=== PATIENT | female | born 1970 | race Caucasian/White ===

== ENCOUNTER 2021-10-13 10:17 | Emergency (ER) | payer OTHER, SELFPAY ==
[2021-10-13] VITALS (7 sets, daily range): BP systolic 116–162; BP diastolic 63–90; PULSE 55–122; RESP 13–18; O2SAT 97–98
--- NOTE | ~2021-10-13 | XR_ITS ---
EXAMINATION: XR chest 2V EXAM DATE: 10/13/2021 10:43 INDICATION: Generalized chest pain, transient alteration of awareness. TECHNIQUE: Frontal and lateral projections of the chest obtained and reviewed. There is no prior silvestre dy for comparison. FINDINGS: Cervical fusion hardware. The lungs are clear. There are no pleural effusions. The cardi omediastinal silhouette is within normal limits. There is no pneumothorax suspected. The bones and soft tissues are unremarkable. IMPRESSION: No acute cardiopulmonary findings. Reviewed, dictated and finalized at location B. [employer]ING [employer]ING OFFICER
--- NOTE | 2021-10-13 10:23 | ECG_ITS ---
Measurements Intervals [place] Rate: 93 P: 71 IN: 153 QRS: 61 QRSD: 82 T: 65 QT: 344 QTc: 430 Interpretive Statements SINUS RHYTHM BASELINE ARTIFACT- I, II, III, AVR, AVL, AVF, V1-V6 NORMAL ECG Electronically Signed On 10-13-2021 10:51:42 [employer]NEY LAW[employer] by Mike Gonzalez D.O.
[2021-10-13 11:03] LABS: Basophils Absolute Auto 0.1 K/mm3 (0.0-0.1); Basophils Percent Auto 0.7 % (0.2-1.2); Eosinophils Absolute Auto 0.1 K/mm3 (0-0.3); Eosinophils Percent Auto 0.8 % (0-4.4); Hematocrit 39.1 % (37.0-47.0); Hemoglobin 12.7 g/dL (12.0-15.0); Immature Granulocyte Absolute 0.07 K/mm3 (0.00-0.031); Immature Granulocyte Percent A 0.5 % (0-0.5); Lymphocytes Absolute Auto 2.96 K/mm3 (0.9-3.2); Lymphocytes Percent Auto 23.1 % (18.3-44.2); Mean Corpuscular HGB Conc 32.5 g/dl (32-36); Mean Corpuscular Hemoglobin 26.8 pg (26-34); Mean Corpuscular Volume 82.5 fl (80-100); Mean Platelet Volume 9.1 fl (7.4-10.4); Monocytes Percent Auto 7.6 % (2.6-8.5); Neutrophils Absolute Auto 8.6 K/mm3 (1.3-6.7); Neutrophils Percent Auto 67.3 % (45.5-73.1); Platelet Count Result 399 k/mm3 (150-375); Red Blood Count 4.74 M/mm3 (4.2-5.4); Red Cell Distribution Width 14.8 % (11.5-14.5); White Blood Count 12.8 K/mm3 (4.5-10.0)
[2021-10-13 11:13] LABS: Prothrombin Time 12.7 Seconds (11.1-14.7)
[2021-10-13 11:14] LABS: Partial Thromboplastin Time 20.7 SECONDS (22.3-36.8)
[2021-10-13 11:16] LABS: Alanine Aminotransferase 23 U/L (4-35); Albumin Level 4.2 g/dL (3.5-5.1); Alkaline Phosphatase 58 U/L (38-126); Anion Gap 11 mmol/L (8-16); Aspartate Amino Transferase 35 U/L (14-36); Bilirubin,Total 0.5 mg/dL (0.2-1.3); Blood Urea Nitrogen 16 mg/dL (7-17); Calcium 9.7 mg/dL (8.4-10.2); Carbon Dioxide 24 mmol/L (22-30); Chloride 106 mmol/L (98-107); Estimated Glomerular Filt Rate > 60; Glucose 126 mg/dL (65-110); Lipase 144 U/L (23-300); Sodium 141 mmol/L (137-145)
--- NOTE | 2021-10-13 11:17 | ED.GENADULT ---
HPI - General Adult General Chief complaint: Chest Pain Stated complaint: PAIN ALL OVER Time Seen by Provider: 10/13/21 10:32 History of Present Illness HPI narrative: Patient 51-year-old female presents the emergency department with chief complaint of chest pain. Per EMS they were called for the patient having discomfort in her chest. Currently the patient has no real complaints the patient has history of being admitted to a nursing facility after having a fentanyl overdose. History is limited due to altered mental status Related Data Allergies Allergy/AdvReac Type Severity Reaction Status Date / Time ketorolac Allergy Severe N/V,BLOTCHEY Unverified 02/11/09 11:39 RASH fentanyl AdvReac Unknown Verified 10/13/21 11:29 Review of Systems Review of Systems: A 10 system review of systems was completed on the patient and is negative except for what is stated in the HPI. Nursing and ancillary documentation was reviewed. Exam Narrative: GENERAL: Well-appearing, well-nourished, and in no acute distress. HEAD: Normocephalic, atraumatic. EYES: PERRLA and EOMI. ENT: Nares clear, no rhinorrhea or epistaxis. Mucous membranes moist. NECK: Supple. CHEST: Clear to auscultation. No respiratory distress. HEART: Regular rate and rhythm. No murmur heard. Normal peripheral pulses. ABDOMEN: Soft, nontender, nondistended, normal active bowel sounds. EXTREMITIES: Normal range of motion. No edema. SKIN: Warm, dry, no rash. NEURO: No focal deficits. Alert and oriented x2. PSYCH: Normal mood and affect. Course Course Emergency Course: EKG is sinus rhythm rate of [address] elevation or ST depression Vital Signs Vital signs: Vital Signs Pulse Rate 88 10/13/21 10:20 Respiratory Rate 16 10/13/21 10:20 Blood Pressure 116/71 10/13/21 10:20 Pulse Oximetry 97 10/13/21 10:20 Pulse Rate 69 10/13/21 11:30 Respiratory Rate 14 10/13/21 11:30 Blood Pressure 124/72 10/13/21 11:30 Pulse Oximetry 97 10/13/21 11:30 Medical Decision Making Vital Signs Vital Signs: Vital Signs Pulse Rate 88 10/13/21 10:20 Respiratory Rate 16 10/13/21 10:20 Blood Pressure 116/71 10/13/21 10:20 Pulse Oximetry 97 10/13/21 10:20 Pulse Rate 69 10/13/21 11:30 Respiratory Rate 14 10/13/21 11:30 Blood Pressure 124/72 10/13/21 11:30 Pulse Oximetry 97 10/13/21 11:30 Lab Data Result diagrams: 10/13/21 10:56 10/13/21 10:56 Labs: Lab Results 10/13/21 10/13/21 10/13/21 Range/Units 10:56 10:56 10:56 WBC 12.8 H (4.5-10.0) K/mm3 RBC 4.74 (4.2-5.4) M/mm3 Hgb 12.7 (12.0-15.0) g/dL Hct 39.1 (37.0-47.0) % MCV 82.5 (80-100) fl MCH 26.8 (26-34) pg MCHC 32.5 (32-36) g/dl RDW 14.8 H (11.5-14.5) % Plt Count 399 H (150-375) k/mm3 MPV 9.1 (7.4-10.4) fl Immature Gran % (Auto) 0.5 (0-0.5) % Neut % (Auto) 67.3 (45.5-73.1) % Lymph % (Auto) 23.1 (18.3-44.2) % Dane % (Auto) 7.6 (2.6-8.5) % Eos % (Auto) 0.8 (0-4.4) % Baso % (Auto) 0.7 (0.2-1.2) % Lymph # (Auto) 2.96 (0.9-3.2) K/mm3 Dane # (Auto) 1.0 H (0.1-0.6) K/mm3 Eos # (Auto) 0.1 (0-0.3) K/mm3 Baso # (Auto) 0.1 (0.0-0.1) K/mm3 Abs Immat Gran (auto) 0.07 H (0.00-0.031) K/mm3 Absolute Neuts (auto) 8.6 H (1.3-6.7) K/mm3 Absolute Nucleated RBC 0.0 (0.0-0.012) K/mm3 Nucleated RBC % 0.0 (0.0-0.2) % PT 12.7 (11.1-14.7) Seconds INR 1.0 APTT 20.7 L (22.3-36.8) SECONDS Sodium 141 (137-145) mmol/L Potassium 4.0 (3.4-5.0) mmol/L Chloride 106 (98-107) mmol/L Carbon Dioxide 24 (22-30) mmol/L Anion Gap 11 (8-16) mmol/L BUN 16 (7-17) mg/dL Creatinine 0.90 (0.7-1.0) mg/dL Estim Creat Clear Calc Not Reportable Estimated GFR > 60 (59 - ) Glucose 126 H (65-110) mg/dL Calcium 9.7 (8.4-10.2) mg/dL Total Bilirubin 0.5 (0.2-1.3) mg/dL AST 35 (14-36) U/L
[2021-10-13 11:27] LABS: Troponin I < 0.012 ng/mL (0.000-0.034)
--- NOTE | 2021-10-13 13:41 | PC.NURSE ---
denies chest pain or sob. vitals stable
--- NOTE | 2021-10-13 13:46 | PC.NURSE ---
pt will be d/c to [facility]sg home after second troponin
[2021-10-13 14:40] LABS: Troponin I < 0.012 ng/mL (0.000-0.034)
== END 2021-10-13 15:42 ==
PROVIDERS: Emergency Provider Emergency Medicine
DX: R07.89 Other chest pain (principal)
CPT/HCPCS: 36415; 71046; 80053; 83690; 84484; 85025; 85610; 85730; 93005; 99284